=== PATIENT | male | born 1965 | race Caucasian/White ===

== ENCOUNTER 2021-07-18 09:23 | Observation (INO) | payer BC ==
[2021-07-18] MEDS ORDERED: Iopamidol-370 76% 500 ML 1 ML ONE (09:57)
[2021-07-18 10:37] LABS: #Lymphocytes 0.9 thou/uL (1.20-3.40); #Monocytes 0.2 thou/uL (0.11-0.59); #Neutrophils 2.8 thou/uL (1.40-6.50); %Eosinophils 0.4 % (0.0-10.0); %Lymphocytes 22.4 % (21.0-51.0); %Monocytes 4.1 % (0.0-10.0); %Neutrophils 73.1 % (42.0-75.0); Hemoglobin 13.2 g/dL (14.0-18.0); Mean Corpuscular HGB CONC 33.2 g/dL (32.0-36.0); Mean Corpuscular Hemoglobin 32.4 pg (27.0-31.0); Mean Corpuscular Volume 97.5 fL (78.0-98.0); RBC Distribution Width 12.3 % (11.5-14.5); Red Blood Cell (RBC) Count 4.07 mill/uL (4.70-6.10); White Blood Cell (WBC) Count 3.8 thou/uL (4.8-10.8)
[2021-07-18] MEDS ORDERED: Acetaminophen 500 MG TAB ONE (10:39)
[2021-07-18 10:50] LABS: Mean Platelet Volume 8.1 fL (7.4-10.4); Platelet Count 118 thou/uL (130-400)
[2021-07-18 10:58] LABS: ALT (SGPT) 28 U/L (8-55); AST (SGOT) 41 U/L (5-34); Albumin 3.7 g/dL (3.5-5.0); Alkaline Phosphatase 56 U/L (40-110); Anion Gap 14 mmol/L (10-20); BUN (Urea Nitrogen) 13 mg/dL (8.4-25.7); Bilirubin, Total 0.5 mg/dL (0.2-1.2); Calc. Creatinine Clearance 0 mL/min (70-130); Calcium 8.2 mg/dL (7.8-10.44); Carbon Dioxide 24 mmol/L (22-29); Chloride 103 mmol/L (98-107); Globulin 2.8 g/dL (2.4-3.5); Glucose 145 mg/dL (70-105); Potassium 4.2 mmol/L (3.5-5.1); Protein, Total 6.5 g/dL (6.0-8.3); Sodium 137 mmol/L (136-145)
[2021-07-18] MEDS ORDERED: Dexamethasone 10 MG/ML VIAL ONE (12:55)
[2021-07-18] MEDS ORDERED: Acetaminophen 325 MG TAB PO PRN (15:43)
[2021-07-18] MEDS ORDERED: Ondansetron PF 4 MG/2 ML Vial IVP PRN (15:43)
[2021-07-18 19:59] VITALS: BMI 37.4
[2021-07-19 00:22] LABS: SARS-CoV-2 NAA Rapid Test DETECTED (NotDetected)
[2021-07-19 05:44] LABS: #Lymphocytes 0.8 thou/uL (1.20-3.40); #Monocytes 0.4 thou/uL (0.11-0.59); #Neutrophils 4.7 thou/uL (1.40-6.50); %Eosinophils 0.1 % (0.0-10.0); %Lymphocytes 14.2 % (21.0-51.0); %Monocytes 6.4 % (0.0-10.0); %Neutrophils 79.4 % (42.0-75.0); Hemoglobin 13.5 g/dL (14.0-18.0); Mean Corpuscular HGB CONC 34.2 g/dL (32.0-36.0); Mean Corpuscular Hemoglobin 33.1 pg (27.0-31.0); Mean Corpuscular Volume 96.7 fL (78.0-98.0); Platelet Count 139 thou/uL (130-400); RBC Distribution Width 12.3 % (11.5-14.5); Red Blood Cell (RBC) Count 4.09 mill/uL (4.70-6.10); White Blood Cell (WBC) Count 5.9 thou/uL (4.8-10.8)
[2021-07-19 06:11] LABS: Anion Gap 12 mmol/L (10-20); BUN (Urea Nitrogen) 13 mg/dL (8.4-25.7); Calc. Creatinine Clearance 152 mL/min (70-130); Carbon Dioxide 28 mmol/L (22-29); Chloride 103 mmol/L (98-107); Glucose 147 mg/dL (70-105); Sodium 139 mmol/L (136-145)
[2021-07-19 07:55] VITALS: TEMP 100.5
[2021-07-19] MEDS ORDERED: Enoxaparin Sodium 40 MG/0.4 ML SYRINGE SC SCH (09:00)
[2021-07-19] MEDS ORDERED: Losartan 25 MG TAB PO SCH (09:00)
[2021-07-19 14:13] VITALS: BP 126/75
[2021-07-21] MEDS ORDERED: FLU VACC QS2021-22(6MOS UP)/PF 60 MCG/0.5 ML SYRINGE IM ONE (09:00)
== END 2021-07-19 16:25 | disposition home or self-care (01) ==
LOC: ERS 09:23 → ERHOLD 11:29 → 2SW 19:11
PROVIDERS: ADMIT Family Medicine; ATTEND Internal Medicine
DX: U07.1 COVID-19 (principal); J12.82 Pneumonia due to coronavirus disease 2019; R55 Syncope and collapse; I10 Essential (primary) hypertension; D61.818 Other pancytopenia; E66.01 Morbid (severe) obesity due to excess calories; Z68.37 Body mass index [BMI] 37.0-37.9, adult; Z79.899 Other long term (current) drug therapy; Z88.8 Allergy status to other drugs, medicaments and biological substances
CPT/HCPCS: 36415; 71045; 71275; 80048; 80053; 84484; 85025; 85379; 93005; 96372; 96374; G0378; J1100; J1650; U0002

== ENCOUNTER 2021-07-21 17:40 | Inpatient (IN) | payer BC ==
[~2021-07-21 17:40] MED LIST: Iopamidol-370 76% 500 ML 1 ML ONE
[2021-07-21 19:08] LABS: #Lymphocytes 0.6 thou/uL (1.20-3.40); #Monocytes 0.3 thou/uL (0.11-0.59); #Neutrophils 7.1 thou/uL (1.40-6.50); %Basophils 0.2 % (0.0-1.0); %Eosinophils 0.3 % (0.0-10.0); %Lymphocytes 7.4 % (21.0-51.0); %Monocytes 3.6 % (0.0-10.0); %Neutrophils 88.5 % (42.0-75.0); Hemoglobin 12.9 g/dL (14.0-18.0); Mean Corpuscular HGB CONC 33.6 g/dL (32.0-36.0); Mean Corpuscular Hemoglobin 32.7 pg (27.0-31.0); Mean Corpuscular Volume 97.3 fL (78.0-98.0); Mean Platelet Volume 7.6 fL (7.4-10.4); Platelet Count 165 thou/uL (130-400); RBC Distribution Width 12.5 % (11.5-14.5); Red Blood Cell (RBC) Count 3.93 mill/uL (4.70-6.10); White Blood Cell (WBC) Count 8.1 thou/uL (4.8-10.8)
[2021-07-21 19:30] LABS: ALT (SGPT) 36 U/L (8-55); AST (SGOT) 52 U/L (5-34); Albumin 3.6 g/dL (3.5-5.0); Alkaline Phosphatase 50 U/L (40-110); Anion Gap 14 mmol/L (10-20); BUN (Urea Nitrogen) 11 mg/dL (8.4-25.7); Bilirubin, Total 0.8 mg/dL (0.2-1.2); Calc. Creatinine Clearance 0 mL/min (70-130); Carbon Dioxide 25 mmol/L (22-29); Chloride 101 mmol/L (98-107); Globulin 2.7 g/dL (2.4-3.5); Glucose 165 mg/dL (70-105); Potassium 3.8 mmol/L (3.5-5.1); Protein, Total 6.3 g/dL (6.0-8.3); Sodium 136 mmol/L (136-145)
[2021-07-21 19:51] LABS: Actual Bicarbonate (HCO3a) 24.5 mEq/L (22-28); Analyzer IN Cardio ER; Base Excess (BEa) 0.4 mEq/L (-2.0 to +3.0); CO2 Tension 37.6 mmHg (35.0-45.0); Calcium, Ionized (arterial) 1.05 mmol/L (1.12-1.30); Carboxyhemoglobin (COHb) 1.3 gm% (0.0-3.0); Hemoglobin (Hb) 13.3 g/dL (14.0-18.0); Potassium - ABG Lab 3.64 mmol/L (3.70-5.30); pH, Arterial 7.43 (7.35-7.45)
[2021-07-21 19:52] LABS: O2 Tension (PaO2), arterial 51.3 mmHg (80.0-100.0); Puncture Site RRA
[2021-07-21] MEDS ORDERED: Enoxaparin Sodium 100 MG/ML SYRINGE ONE ×4 (20:53→21:01)
[2021-07-21] MEDS ORDERED: Enoxaparin Sodium 60 MG/0.6 ML SYRINGE ONE (20:53)
[2021-07-21] MEDS ORDERED: Acetaminophen 325 MG TAB PO PRN (21:01)
[2021-07-21] MEDS ORDERED: Ondansetron PF 4 MG/2 ML Vial IVP PRN (21:01)
[2021-07-21] MEDS ORDERED: Acetaminophen 500 MG TAB ONE ×2 (21:53→21:55)
[2021-07-22 03:47] LABS: #Basophils 0.1 thou/uL (0.0-0.2); #Lymphocytes 0.6 thou/uL (1.20-3.40); #Monocytes 0.4 thou/uL (0.11-0.59); #Neutrophils 6.3 thou/uL (1.40-6.50); %Basophils 1.5 % (0.0-1.0); %Eosinophils 0.1 % (0.0-10.0); %Lymphocytes 7.6 % (21.0-51.0); %Monocytes 5.2 % (0.0-10.0); %Neutrophils 85.6 % (42.0-75.0); Hemoglobin 13.3 g/dL (14.0-18.0); Mean Corpuscular HGB CONC 32.2 g/dL (32.0-36.0); Mean Corpuscular Hemoglobin 31.2 pg (27.0-31.0); Mean Corpuscular Volume 96.8 fL (78.0-98.0); Mean Platelet Volume 7.7 fL (7.4-10.4); Platelet Count 178 thou/uL (130-400); RBC Distribution Width 12.5 % (11.5-14.5); Red Blood Cell (RBC) Count 4.26 mill/uL (4.70-6.10); White Blood Cell (WBC) Count 7.3 thou/uL (4.8-10.8)
[2021-07-22 04:07] LABS: Anion Gap 13 mmol/L (10-20); BUN (Urea Nitrogen) 13 mg/dL (8.4-25.7); CRP (Inflammatory) 20.89 mg/dL (= or < 0.5); Calc. Creatinine Clearance 228 mL/min (70-130); Calcium 8.4 mg/dL (7.8-10.44); Carbon Dioxide 24 mmol/L (22-29); Chloride 102 mmol/L (98-107); Glucose 203 mg/dL (70-105); Potassium 3.9 mmol/L (3.5-5.1); Sodium 135 mmol/L (136-145)
[2021-07-22] MEDS ORDERED: Enoxaparin Sodium 80 MG/0.8 ML SYRINGE SC SCH (09:00)
[2021-07-22] MEDS ORDERED: Enoxaparin Sodium 100 MG/ML SYRINGE SC SCH (09:00)
[2021-07-22] MEDS: Losartan 25 MG TAB PO SCH (10:08)
[2021-07-22] MEDS: Famotidine/PF 20 mg/2ml Vial SLOW IVP SCH ×2 (10:08→10:10)
[2021-07-22] MEDS: Zinc Sulfate 220 MG CAP PO SCH (10:09)
[2021-07-22] MEDS: Aspirin 81 mg Enteric Coated Tablet PO SCH (10:09)
[2021-07-22] MEDS: Cholecalciferol 1,000 UNITS (25 MCG) TAB PO SCH (10:09)
[2021-07-22] MEDS: Dexamethasone 10 MG/ML VIAL SLOW IVP SCH ×2 (10:10→20:10)
[2021-07-22] MEDS ORDERED: REMDESIVIR 200 MG in Sodium Chloride 0.9% 250 ML 210 ML IV SCH (13:00)
[2021-07-22] MEDS: BARICITINIB 2 MG TAB PO SCH (13:57)
[2021-07-22] MEDS: Enoxaparin Sodium 60 MG/0.6 ML SYRINGE SC SCH (20:10)
[2021-07-23 03:57] LABS: Anion Gap 15 mmol/L (10-20); BUN (Urea Nitrogen) 22 mg/dL (8.4-25.7); CRP (Inflammatory) 10.67 mg/dL (= or < 0.5); Calc. Creatinine Clearance 198 mL/min (70-130); Calcium 8.8 mg/dL (7.8-10.44); Carbon Dioxide 25 mmol/L (22-29); Chloride 100 mmol/L (98-107); Glucose 188 mg/dL (70-105); Potassium 3.9 mmol/L (3.5-5.1); Sodium 136 mmol/L (136-145)
[2021-07-23 04:09] LABS: #Lymphocytes 1.2 thou/uL (1.20-3.40); #Monocytes 0.6 thou/uL (0.11-0.59); #Neutrophils 9.9 thou/uL (1.40-6.50); %Eosinophils 0.2 % (0.0-10.0); %Neutrophils 84.7 % (42.0-75.0); Hemoglobin 13.8 g/dL (14.0-18.0); Mean Corpuscular HGB CONC 32.6 g/dL (32.0-36.0); Mean Corpuscular Hemoglobin 32.4 pg (27.0-31.0); Mean Corpuscular Volume 99.3 fL (78.0-98.0); Mean Platelet Volume 7.9 fL (7.4-10.4); Platelet Count 251 thou/uL (130-400); RBC Distribution Width 12.6 % (11.5-14.5); Red Blood Cell (RBC) Count 4.26 mill/uL (4.70-6.10); White Blood Cell (WBC) Count 11.7 thou/uL (4.8-10.8)
[2021-07-23] MEDS ORDERED: Metoprolol Tartrate 5 MG/5 ML VIAL ONE (05:44)
[2021-07-23] MEDS: Metoprolol Tartrate 5 MG/5 ML VIAL IVP PRN ×2 (05:46→06:37)
[2021-07-23] MEDS: Dexamethasone 10 MG/ML VIAL SLOW IVP SCH ×2 (08:50→19:57)
[2021-07-23] MEDS: Aspirin 81 mg Enteric Coated Tablet PO SCH (08:50)
[2021-07-23] MEDS: Famotidine/PF 20 mg/2ml Vial SLOW IVP SCH ×2 (08:50→19:56)
[2021-07-23] MEDS: Cholecalciferol 1,000 UNITS (25 MCG) TAB PO SCH (08:50)
[2021-07-23] MEDS: Zinc Sulfate 220 MG CAP PO SCH (08:50)
[2021-07-23] MEDS: Enoxaparin Sodium 60 MG/0.6 ML SYRINGE SC SCH (08:51)
[2021-07-23 08:54] LABS: Actual Bicarbonate (HCO3a) 24.9 mEq/L (22-28); Base Excess (BEa) 1.8 mEq/L (-2.0 to +3.0); CO2 Tension 34.3 mmHg (35.0-45.0); Calcium, Ionized (arterial) 1.09 mmol/L (1.12-1.30); Carboxyhemoglobin (COHb) 0.9 gm% (0.0-3.0); Hemoglobin (Hb) 13.6 g/dL (14.0-18.0); O2 Tension (PaO2), arterial 77.9 mmHg (80.0-100.0); Potassium - ABG Lab 3.91 mmol/L (3.70-5.30); pH, Arterial 7.48 (7.35-7.45)
[2021-07-23 08:57] LABS: ALV-art Gradient 449.625 mmHg (0-20); Puncture Site RRA
[2021-07-23] MEDS: Losartan 25 MG TAB PO SCH (09:02)
[2021-07-23] MEDS: REMDESIVIR 100 MG in Sodium Chloride 0.9% 250 ML 230 ML IV SCH (09:15)
[2021-07-23] MEDS: Amiodarone 450 MG, Admixture Fee 1 EACH in Dextrose 5% in Water 250 ML IVPB SCH ×2 (09:24→16:26)
[2021-07-23] MEDS: BARICITINIB 2 MG TAB PO SCH (14:46)
[2021-07-23] MEDS: Pantoprazole 40 MG VIAL IVP SCH (19:56)
[2021-07-23] MEDS: Enoxaparin Sodium 80 MG/0.8 ML SYRINGE SC SCH (19:58)
[2021-07-24 03:59] LABS: Anion Gap 15 mmol/L (10-20); BUN (Urea Nitrogen) 27 mg/dL (8.4-25.7); CRP (Inflammatory) 4.74 mg/dL (= or < 0.5); Calc. Creatinine Clearance 205 mL/min (70-130); Calcium 8.5 mg/dL (7.8-10.44); Carbon Dioxide 25 mmol/L (22-29); Chloride 100 mmol/L (98-107); Glucose 222 mg/dL (70-105); Potassium 3.8 mmol/L (3.5-5.1); Sodium 136 mmol/L (136-145)
[2021-07-24 06:23] LABS: Hemoglobin 13.2 g/dL (14.0-18.0); Mean Corpuscular HGB CONC 33.6 g/dL (32.0-36.0); Mean Corpuscular Hemoglobin 32.4 pg (27.0-31.0); Mean Corpuscular Volume 96.6 fL (78.0-98.0); Mean Platelet Volume 7.6 fL (7.4-10.4); Platelet Count 303 thou/uL (130-400); RBC Distribution Width 12.3 % (11.5-14.5); Red Blood Cell (RBC) Count 4.07 mill/uL (4.70-6.10); White Blood Cell (WBC) Count 12.9 thou/uL (4.8-10.8)
[2021-07-24 06:35] LABS: #Lymphocytes 1.2 thou/uL (1.20-3.40); #Monocytes 0.9 thou/uL (0.11-0.59); #Neutrophils 10.8 thou/uL (1.40-6.50); %Eosinophils 0.2 % (0.0-10.0); %Lymphocytes 9.6 % (21.0-51.0); %Monocytes 6.7 % (0.0-10.0); %Neutrophils 83.5 % (42.0-75.0); RBC Morphology Normal
[2021-07-24] MEDS: Cholecalciferol 1,000 UNITS (25 MCG) TAB PO SCH (09:00)
[2021-07-24] MEDS: Aspirin 81 mg Enteric Coated Tablet PO SCH (09:00)
[2021-07-24] MEDS: Famotidine/PF 20 mg/2ml Vial SLOW IVP SCH (09:00)
[2021-07-24] MEDS: Pantoprazole 40 MG VIAL IVP SCH ×2 (09:00→20:18)
[2021-07-24] MEDS: Losartan 25 MG TAB PO SCH (09:00)
[2021-07-24] MEDS: Enoxaparin Sodium 80 MG/0.8 ML SYRINGE SC SCH ×2 (09:00→20:18)
[2021-07-24] MEDS: Zinc Sulfate 220 MG CAP PO SCH (09:00)
[2021-07-24] MEDS: REMDESIVIR 100 MG in Sodium Chloride 0.9% 250 ML 230 ML IV SCH (09:01)
[2021-07-24] MEDS: Dexamethasone 10 MG/ML VIAL SLOW IVP SCH ×2 (09:01→20:18)
[2021-07-24] MEDS ORDERED: Amiodarone 200 MG TAB PO SCH ×2 (11:00→13:00)
[2021-07-24] MEDS: BARICITINIB 2 MG TAB PO SCH (15:03)
[2021-07-24] MEDS ORDERED: Electrolyte Replacement Protocol 1 EACH FS SCH (17:15)
[2021-07-24] MEDS: Amiodarone 200 MG TAB PO SCH (20:18)
[2021-07-25 03:45] LABS: CRP (Inflammatory) 2.85 mg/dL (= or < 0.5); Phosphorus 2.9 mg/dL (2.3-4.7)
[2021-07-25 03:48] LABS: ALT (SGPT) 45 U/L (8-55); AST (SGOT) 33 U/L (5-34); Albumin 3.7 g/dL (3.5-5.0); Alkaline Phosphatase 52 U/L (40-110); Anion Gap 14 mmol/L (10-20); BUN (Urea Nitrogen) 24 mg/dL (8.4-25.7); Bilirubin, Direct 0.4 mg/dL (0.1-0.3); Bilirubin, Total 0.9 mg/dL (0.2-1.2); Calc. Creatinine Clearance 188 mL/min (70-130); Calcium 8.6 mg/dL (7.8-10.44); Carbon Dioxide 27 mmol/L (22-29); Chloride 99 mmol/L (98-107); Globulin 3.2 g/dL (2.4-3.5); Glucose 201 mg/dL (70-105); Magnesium 2.4 mg/dL (1.6-2.6); Potassium 3.8 mmol/L (3.5-5.1); Protein, Total 6.9 g/dL (6.0-8.3); Sodium 136 mmol/L (136-145)
[2021-07-25 03:51] LABS: Band 9 % (5-11); Hemoglobin 13.6 g/dL (14.0-18.0); Lymphocytes 6 % (21-51); MDiff Complete? YES; Mean Corpuscular HGB CONC 33.8 g/dL (32.0-36.0); Mean Corpuscular Hemoglobin 32.4 pg (27.0-31.0); Mean Corpuscular Volume 95.8 fL (78.0-98.0); Mean Platelet Volume 7.3 fL (7.4-10.4); Monocytes 20 % (0-10); Neutrophil 65 % (42-75); Platelet Count 329 thou/uL (130-400); Platelet Morphology Comment Appears Adequate; RBC Distribution Width 12.3 % (11.5-14.5); RBC Morphology Normal; White Blood Cell (WBC) Count 15.3 thou/uL (4.8-10.8)
[2021-07-25] MEDS: Zinc Sulfate 220 MG CAP PO SCH (09:24)
[2021-07-25] MEDS: Losartan 25 MG TAB PO SCH (09:24)
[2021-07-25] MEDS: Amiodarone 200 MG TAB PO SCH ×2 (09:25→20:19)
[2021-07-25] MEDS: Aspirin 81 mg Enteric Coated Tablet PO SCH (09:25)
[2021-07-25] MEDS: Dexamethasone 10 MG/ML VIAL SLOW IVP SCH ×2 (09:25→20:19)
[2021-07-25] MEDS: Pantoprazole 40 MG VIAL IVP SCH ×2 (09:25→20:19)
[2021-07-25] MEDS: REMDESIVIR 100 MG in Sodium Chloride 0.9% 250 ML 230 ML IV SCH (09:25)
[2021-07-25] MEDS: Enoxaparin Sodium 80 MG/0.8 ML SYRINGE SC SCH ×2 (09:25→20:19)
[2021-07-25] MEDS: Cholecalciferol 1,000 UNITS (25 MCG) TAB PO SCH (09:25)
[2021-07-25] MEDS: BARICITINIB 2 MG TAB PO SCH (13:30)
[2021-07-26 03:45] LABS: Hemoglobin A1c 6.5 % (4.0-6.0)
[2021-07-26 03:55] LABS: Hemoglobin 13.8 g/dL (14.0-18.0); Hypochromia SLIGHT = 6-15 cells (100X) (0-5/hpf); Lymphocytes 7 % (21-51); MDiff Complete? YES; Mean Corpuscular HGB CONC 33.9 g/dL (32.0-36.0); Mean Corpuscular Hemoglobin 33.5 pg (27.0-31.0); Mean Corpuscular Volume 98.9 fL (78.0-98.0); Monocytes 9 % (0-10); Neutrophil 84 % (42-75); Platelet Count 287 thou/uL (130-400); Platelet Morphology Comment Appears Adequate; RBC Distribution Width 12.4 % (11.5-14.5); Red Blood Cell (RBC) Count 4.11 mill/uL (4.70-6.10); White Blood Cell (WBC) Count 17.6 thou/uL (4.8-10.8)
[2021-07-26 07:14] LABS: Albumin 3.4 g/dL (3.5-5.0)
[2021-07-26 07:15] LABS: Chloride 99 mmol/L (98-107); Potassium 3.5 mmol/L (3.5-5.1); Sodium 135 mmol/L (136-145)
[2021-07-26 07:16] LABS: Calcium 8.4 mg/dL (7.8-10.44); Glucose 182 mg/dL (70-105)
[2021-07-26 07:17] LABS: Globulin 2.8 g/dL (2.4-3.5); Protein, Total 6.2 g/dL (6.0-8.3)
[2021-07-26 07:18] LABS: Anion Gap 13 mmol/L (10-20); Bilirubin, Total 0.8 mg/dL (0.2-1.2); Carbon Dioxide 27 mmol/L (22-29)
[2021-07-26 07:19] LABS: Alkaline Phosphatase 46 U/L (40-110); CRP (Inflammatory) 1.75 mg/dL (= or < 0.5)
[2021-07-26 07:20] LABS: Calc. Creatinine Clearance 185 mL/min (70-130)
[2021-07-26 07:21] LABS: BUN (Urea Nitrogen) 20 mg/dL (8.4-25.7)
[2021-07-26 07:22] LABS: ALT (SGPT) 44 U/L (8-55); AST (SGOT) 26 U/L (5-34)
[2021-07-26] MEDS ORDERED: Dextrose 5% in Water 1,000 ML IV PRN (08:23)
[2021-07-26] MEDS ORDERED: Dextrose 50% Abboject 50 ML SYRINGE SLOW IVP PRN (08:23)
[2021-07-26] MEDS: REMDESIVIR 100 MG in Sodium Chloride 0.9% 250 ML 230 ML IV SCH (10:09)
[2021-07-26] MEDS: Cholecalciferol 1,000 UNITS (25 MCG) TAB PO SCH (10:10)
[2021-07-26] MEDS: Dexamethasone 10 MG/ML VIAL SLOW IVP SCH ×2 (10:10→21:55)
[2021-07-26] MEDS: Losartan 25 MG TAB PO SCH (10:10)
[2021-07-26] MEDS: Amiodarone 200 MG TAB PO SCH ×2 (10:11→21:55)
[2021-07-26] MEDS: Enoxaparin Sodium 80 MG/0.8 ML SYRINGE SC SCH ×2 (10:11→21:56)
[2021-07-26] MEDS: Zinc Sulfate 220 MG CAP PO SCH (10:11)
[2021-07-26] MEDS: Aspirin 81 mg Enteric Coated Tablet PO SCH (10:11)
[2021-07-26] MEDS ORDERED: Potassium Chloride 20 MEQ TAB PO SCH (12:00)
[2021-07-26] MEDS: BARICITINIB 2 MG TAB PO SCH (12:01)
[2021-07-26] MEDS: Insulin Regular 300 UNITS/3 ML VIAL SC PRN ×2 (16:16→22:00)
[2021-07-27] MEDS ORDERED: Potassium Chloride 20 MEQ TAB PO SCH (09:00)
[2021-07-27] MEDS: Enoxaparin Sodium 80 MG/0.8 ML SYRINGE SC SCH ×2 (09:57→20:16)
[2021-07-27] MEDS: Aspirin 81 mg Enteric Coated Tablet PO SCH (09:57)
[2021-07-27] MEDS: Amiodarone 200 MG TAB PO SCH ×2 (09:58→20:16)
[2021-07-27] MEDS: Zinc Sulfate 220 MG CAP PO SCH (09:58)
[2021-07-27] MEDS: Cholecalciferol 1,000 UNITS (25 MCG) TAB PO SCH (09:58)
[2021-07-27] MEDS: Dexamethasone 10 MG/ML VIAL SLOW IVP SCH ×2 (09:58→20:16)
[2021-07-27] MEDS: Losartan 25 MG TAB PO SCH (09:58)
[2021-07-27] MEDS: Furosemide 20 MG/2 ML VIAL SLOW IVP SCH (10:04)
[2021-07-27] MEDS: BARICITINIB 2 MG TAB PO SCH (13:31)
[2021-07-27] MEDS ORDERED: VANCOMYCIN 2 GRAM/400 ML BAG 2 GM in Premix Bag 1 BAG IVPB SCH (15:45)
[2021-07-27] MEDS: Cefepime 2 GM in Sodium Chloride 0.9% 100 ML IVPB SCH (16:51)
[2021-07-27] MEDS: Insulin Regular 300 UNITS/3 ML VIAL SC PRN (16:55)
[2021-07-27] MEDS: VANCOMYCIN 2 GRAM/400 ML BAG 2 GM in Premix Bag 1 BAG IVPB SCH (17:21)
[2021-07-27] MEDS: Mometasone 200 MCG/Formoterol 5 MCG 120 PUFF INHALER INH SCH (22:27)
[2021-07-28] MEDS: Cefepime 2 GM in Sodium Chloride 0.9% 100 ML IVPB SCH ×2 (04:06→15:36)
[2021-07-28] MEDS: VANCOMYCIN 2 GRAM/400 ML BAG 2 GM in Premix Bag 1 BAG IVPB SCH ×2 (04:06→15:36)
[2021-07-28 04:25] LABS: ALT (SGPT) 34 U/L (8-55); AST (SGOT) 27 U/L (5-34); Albumin 3.1 g/dL (3.5-5.0); Alkaline Phosphatase 46 U/L (40-110); Anion Gap 13 mmol/L (10-20); BUN (Urea Nitrogen) 17 mg/dL (8.4-25.7); Bilirubin, Direct 0.3 mg/dL (0.1-0.3); Bilirubin, Total 0.6 mg/dL (0.2-1.2); CRP (Inflammatory) 13.16 mg/dL (= or < 0.5); Calc. Creatinine Clearance 225 mL/min (70-130); Calcium 8.3 mg/dL (7.8-10.44); Carbon Dioxide 21 mmol/L (22-29); Chloride 105 mmol/L (98-107); Globulin 3.3 g/dL (2.4-3.5); Glucose 167 mg/dL (70-105); Magnesium 2.4 mg/dL (1.6-2.6); Phosphorus 3.6 mg/dL (2.3-4.7); Protein, Total 6.4 g/dL (6.0-8.3); Sodium 134 mmol/L (136-145)
[2021-07-28 04:34] LABS: Band 3 % (5-11); Hemoglobin 13.4 g/dL (14.0-18.0); Lymphocytes 3 % (21-51); MDiff Complete? YES; Mean Corpuscular HGB CONC 33.7 g/dL (32.0-36.0); Mean Corpuscular Hemoglobin 32.6 pg (27.0-31.0); Mean Corpuscular Volume 96.8 fL (78.0-98.0); Mean Platelet Volume 7.3 fL (7.4-10.4); Monocytes 1 % (0-10); Myelocyte 2 % (0-0); Neutrophil 91 % (42-75); Platelet Count 343 thou/uL (130-400); Platelet Morphology Comment Appears Adequate; RBC Distribution Width 12.4 % (11.5-14.5); RBC Morphology Normal; Red Blood Cell (RBC) Count 4.09 mill/uL (4.70-6.10); White Blood Cell (WBC) Count 17.4 thou/uL (4.8-10.8)
[2021-07-28] MEDS: Mometasone 200 MCG/Formoterol 5 MCG 120 PUFF INHALER INH SCH (07:39)
[2021-07-28] MEDS: Aspirin 81 mg Enteric Coated Tablet PO SCH (07:49)
[2021-07-28] MEDS: Losartan 25 MG TAB PO SCH (07:49)
[2021-07-28] MEDS: Amiodarone 200 MG TAB PO SCH (07:49)
[2021-07-28] MEDS: Cholecalciferol 1,000 UNITS (25 MCG) TAB PO SCH (07:49)
[2021-07-28] MEDS: Dexamethasone 10 MG/ML VIAL SLOW IVP SCH ×2 (07:50→20:55)
[2021-07-28] MEDS: Enoxaparin Sodium 80 MG/0.8 ML SYRINGE SC SCH ×2 (07:50→20:55)
[2021-07-28] MEDS: Furosemide 20 MG/2 ML VIAL SLOW IVP SCH (07:50)
[2021-07-28] MEDS: Zinc Sulfate 220 MG CAP PO SCH (07:50)
[2021-07-28] MEDS ORDERED: Furosemide 20 MG/2 ML VIAL SLOW IVP SCH (08:58)
[2021-07-28] MEDS ORDERED: Furosemide 40 MG/4 ML VIAL SLOW IVP SCH (09:15)
[2021-07-28] MEDS: BARICITINIB 2 MG TAB PO SCH (15:37)
[2021-07-28] MEDS ORDERED: Cholecalciferol 1,000 UNITS (25 MCG) TAB PO SCH (21:00)
[2021-07-28] MEDS: Insulin Regular 300 UNITS/3 ML VIAL SC PRN (21:24)
[2021-07-29 03:23] LABS: #Lymphocytes 0.5 thou/uL (1.20-3.40); #Monocytes 0.4 thou/uL (0.11-0.59); #Neutrophils 13.7 thou/uL (1.40-6.50); %Eosinophils 0.2 % (0.0-10.0); %Lymphocytes 3.4 % (21.0-51.0); %Monocytes 2.7 % (0.0-10.0); %Neutrophils 93.7 % (42.0-75.0); Hemoglobin 12.8 g/dL (14.0-18.0); Mean Corpuscular Hemoglobin 32.7 pg (27.0-31.0); Mean Corpuscular Volume 96.2 fL (78.0-98.0); Mean Platelet Volume 7.2 fL (7.4-10.4); Platelet Count 378 thou/uL (130-400); RBC Distribution Width 12.4 % (11.5-14.5); Red Blood Cell (RBC) Count 3.93 mill/uL (4.70-6.10); White Blood Cell (WBC) Count 14.6 thou/uL (4.8-10.8)
[2021-07-29 03:45] LABS: ALT (SGPT) 28 U/L (8-55); AST (SGOT) 16 U/L (5-34); Albumin 3.1 g/dL (3.5-5.0); Alkaline Phosphatase 49 U/L (40-110); Anion Gap 10 mmol/L (10-20); BUN (Urea Nitrogen) 20 mg/dL (8.4-25.7); Bilirubin, Total 0.6 mg/dL (0.2-1.2); CRP (Inflammatory) 7.44 mg/dL (= or < 0.5); Calc. Creatinine Clearance 225 mL/min (70-130); Calcium 8.3 mg/dL (7.8-10.44); Carbon Dioxide 25 mmol/L (22-29); Chloride 101 mmol/L (98-107); Glucose 197 mg/dL (70-105); Magnesium 2.4 mg/dL (1.6-2.6); Potassium 4.3 mmol/L (3.5-5.1); Protein, Total 6.1 g/dL (6.0-8.3); Sodium 132 mmol/L (136-145)
[2021-07-29] MEDS: VANCOMYCIN 2 GRAM/400 ML BAG 2 GM in Premix Bag 1 BAG IVPB SCH ×2 (03:57→14:29)
[2021-07-29] MEDS: Cefepime 2 GM in Sodium Chloride 0.9% 100 ML IVPB SCH ×2 (03:59→14:29)
[2021-07-29] MEDS: Insulin Regular 300 UNITS/3 ML VIAL SC PRN ×2 (05:49→21:15)
[2021-07-29] MEDS: Mometasone 200 MCG/Formoterol 5 MCG 120 PUFF INHALER INH SCH ×2 (07:11→07:13)
[2021-07-29] MEDS: Zinc Sulfate 220 MG CAP PO SCH (08:24)
[2021-07-29] MEDS: Dexamethasone 10 MG/ML VIAL SLOW IVP SCH ×2 (08:24→20:29)
[2021-07-29] MEDS: Enoxaparin Sodium 80 MG/0.8 ML SYRINGE SC SCH ×2 (08:24→20:29)
[2021-07-29] MEDS: Aspirin 81 mg Enteric Coated Tablet PO SCH (08:24)
[2021-07-29] MEDS: Losartan 25 MG TAB PO SCH (08:24)
[2021-07-29] MEDS: Dronedarone HCl 400 MG TAB PO SCH ×2 (08:24→17:12)
[2021-07-29] MEDS: Cholecalciferol 1,000 UNITS (25 MCG) TAB PO SCH (08:24)
[2021-07-29] MEDS: BARICITINIB 2 MG TAB PO SCH (14:28)
[2021-07-30] MEDS: VANCOMYCIN 2 GRAM/400 ML BAG 2 GM in Premix Bag 1 BAG IVPB SCH ×2 (03:37→16:59)
[2021-07-30 04:17] LABS: #Lymphocytes 0.5 thou/uL (1.20-3.40); #Monocytes 0.6 thou/uL (0.11-0.59); #Neutrophils 14.5 thou/uL (1.40-6.50); %Eosinophils 0.1 % (0.0-10.0); %Monocytes 3.7 % (0.0-10.0); %Neutrophils 93.2 % (42.0-75.0); Hemoglobin 13.4 g/dL (14.0-18.0); Mean Corpuscular HGB CONC 33.5 g/dL (32.0-36.0); Mean Corpuscular Hemoglobin 32.8 pg (27.0-31.0); Mean Corpuscular Volume 97.9 fL (78.0-98.0); Mean Platelet Volume 7.3 fL (7.4-10.4); Platelet Count 394 thou/uL (130-400); RBC Distribution Width 12.5 % (11.5-14.5); Red Blood Cell (RBC) Count 4.07 mill/uL (4.70-6.10); White Blood Cell (WBC) Count 15.6 thou/uL (4.8-10.8)
[2021-07-30 04:48] LABS: ALT (SGPT) 28 U/L (8-55); AST (SGOT) 16 U/L (5-34); Albumin 3.2 g/dL (3.5-5.0); Alkaline Phosphatase 47 U/L (40-110); Anion Gap 13 mmol/L (10-20); BUN (Urea Nitrogen) 18 mg/dL (8.4-25.7); Bilirubin, Total 0.6 mg/dL (0.2-1.2); Calc. Creatinine Clearance 249 mL/min (70-130); Calcium 8.9 mg/dL (7.8-10.44); Carbon Dioxide 23 mmol/L (22-29); Chloride 101 mmol/L (98-107); Globulin 3.3 g/dL (2.4-3.5); Glucose 160 mg/dL (70-105); Potassium 4.8 mmol/L (3.5-5.1); Protein, Total 6.5 g/dL (6.0-8.3); Sodium 132 mmol/L (136-145)
[2021-07-30] MEDS: Cefepime 2 GM in Sodium Chloride 0.9% 100 ML IVPB SCH ×2 (06:15→18:30)
[2021-07-30] MEDS: Mometasone 200 MCG/Formoterol 5 MCG 120 PUFF INHALER INH SCH ×3 (06:23→21:57)
[2021-07-30] MEDS: Cholecalciferol 1,000 UNITS (25 MCG) TAB PO SCH (07:50)
[2021-07-30] MEDS: Dronedarone HCl 400 MG TAB PO SCH ×2 (07:50→16:59)
[2021-07-30] MEDS: Losartan 25 MG TAB PO SCH (07:50)
[2021-07-30] MEDS: Zinc Sulfate 220 MG CAP PO SCH (07:50)
[2021-07-30] MEDS: Dexamethasone 10 MG/ML VIAL SLOW IVP SCH ×2 (07:50→20:00)
[2021-07-30] MEDS: Aspirin 81 mg Enteric Coated Tablet PO SCH (07:50)
[2021-07-30] MEDS: Enoxaparin Sodium 80 MG/0.8 ML SYRINGE SC SCH ×2 (07:50→20:00)
[2021-07-30] MEDS: BARICITINIB 2 MG TAB PO SCH (11:26)
[2021-07-30] MEDS: Folic Acid 1 MG TAB PO SCH (20:01)
[2021-07-30] MEDS: Cyanocobalamin (Vitamin B-12) 1,000 MCG TAB PO SCH (20:01)
[2021-07-31 04:14] LABS: #Lymphocytes 0.5 thou/uL (1.20-3.40); #Monocytes 0.7 thou/uL (0.11-0.59); #Neutrophils 13.4 thou/uL (1.40-6.50); %Eosinophils 0.1 % (0.0-10.0); %Lymphocytes 3.3 % (21.0-51.0); %Monocytes 4.4 % (0.0-10.0); %Neutrophils 92.2 % (42.0-75.0); Mean Corpuscular HGB CONC 33.8 g/dL (32.0-36.0); Mean Corpuscular Hemoglobin 32.7 pg (27.0-31.0); Mean Corpuscular Volume 96.8 fL (78.0-98.0); Mean Platelet Volume 7.5 fL (7.4-10.4); Platelet Count 379 thou/uL (130-400); RBC Distribution Width 12.4 % (11.5-14.5); Red Blood Cell (RBC) Count 3.97 mill/uL (4.70-6.10); White Blood Cell (WBC) Count 14.6 thou/uL (4.8-10.8)
[2021-07-31 04:34] LABS: Vancomycin, Trough 14.6 ug/mL
[2021-07-31 04:38] LABS: ALT (SGPT) 24 U/L (8-55); AST (SGOT) 17 U/L (5-34); Albumin 3.1 g/dL (3.5-5.0); Alkaline Phosphatase 46 U/L (40-110); Anion Gap 14 mmol/L (10-20); BUN (Urea Nitrogen) 19 mg/dL (8.4-25.7); Bilirubin, Direct 0.3 mg/dL (0.1-0.3); Bilirubin, Total 0.6 mg/dL (0.2-1.2); Calc. Creatinine Clearance 236 mL/min (70-130); Calcium 8.7 mg/dL (7.8-10.44); Carbon Dioxide 20 mmol/L (22-29); Chloride 102 mmol/L (98-107); Globulin 3.1 g/dL (2.4-3.5); Glucose 154 mg/dL (70-105); Potassium 4.7 mmol/L (3.5-5.1); Protein, Total 6.2 g/dL (6.0-8.3); Sodium 131 mmol/L (136-145)
[2021-07-31] MEDS: VANCOMYCIN 2 GRAM/400 ML BAG 2 GM in Premix Bag 1 BAG IVPB SCH ×2 (04:48→16:21)
[2021-07-31] MEDS: Cefepime 2 GM in Sodium Chloride 0.9% 100 ML IVPB SCH ×2 (05:50→16:19)
[2021-07-31] MEDS: Mometasone 200 MCG/Formoterol 5 MCG 120 PUFF INHALER INH SCH ×2 (05:56→19:22)
[2021-07-31] MEDS ORDERED: Furosemide 40 MG TAB PO SCH (07:30)
[2021-07-31] MEDS: Dronedarone HCl 400 MG TAB PO SCH ×2 (09:35→16:20)
[2021-07-31] MEDS: Cholecalciferol 1,000 UNITS (25 MCG) TAB PO SCH (09:35)
[2021-07-31] MEDS: Zinc Sulfate 220 MG CAP PO SCH (09:35)
[2021-07-31] MEDS: Aspirin 81 mg Enteric Coated Tablet PO SCH (09:35)
[2021-07-31] MEDS: Losartan 25 MG TAB PO SCH (09:35)
[2021-07-31] MEDS: Dexamethasone 10 MG/ML VIAL SLOW IVP SCH ×2 (09:36→21:01)
[2021-07-31] MEDS: Enoxaparin Sodium 80 MG/0.8 ML SYRINGE SC SCH ×2 (09:36→21:01)
[2021-07-31] MEDS: BARICITINIB 2 MG TAB PO SCH (12:26)
[2021-07-31] MEDS: Insulin Regular 300 UNITS/3 ML VIAL SC PRN (16:43)
[2021-07-31] MEDS: Folic Acid 1 MG TAB PO SCH (21:01)
[2021-07-31] MEDS: Cyanocobalamin (Vitamin B-12) 1,000 MCG TAB PO SCH (21:01)
[2021-08-01] MEDS: Cefepime 2 GM in Sodium Chloride 0.9% 100 ML IVPB SCH ×2 (03:59→17:47)
[2021-08-01 04:02] LABS: #Lymphocytes 0.4 thou/uL (1.20-3.40); #Monocytes 0.6 thou/uL (0.11-0.59); #Neutrophils 13.9 thou/uL (1.40-6.50); %Eosinophils 0.1 % (0.0-10.0); %Lymphocytes 2.9 % (21.0-51.0); %Monocytes 4.1 % (0.0-10.0); Hemoglobin 13.3 g/dL (14.0-18.0); Mean Corpuscular HGB CONC 33.5 g/dL (32.0-36.0); Mean Corpuscular Volume 98.7 fL (78.0-98.0); Mean Platelet Volume 7.2 fL (7.4-10.4); Platelet Count 343 thou/uL (130-400); RBC Distribution Width 12.5 % (11.5-14.5); Red Blood Cell (RBC) Count 4.01 mill/uL (4.70-6.10); White Blood Cell (WBC) Count 14.9 thou/uL (4.8-10.8)
[2021-08-01] MEDS: VANCOMYCIN 2 GRAM/400 ML BAG 2 GM in Premix Bag 1 BAG IVPB SCH (04:07)
[2021-08-01 04:22] LABS: Anion Gap 13 mmol/L (10-20); BUN (Urea Nitrogen) 20 mg/dL (8.4-25.7); CRP (Inflammatory) 2.84 mg/dL (= or < 0.5); Calc. Creatinine Clearance 228 mL/min (70-130); Calcium 8.6 mg/dL (7.8-10.44); Carbon Dioxide 21 mmol/L (22-29); Chloride 103 mmol/L (98-107); Glucose 158 mg/dL (70-105); Magnesium 2.3 mg/dL (1.6-2.6); Potassium 4.5 mmol/L (3.5-5.1); Sodium 132 mmol/L (136-145)
[2021-08-01] MEDS: Mometasone 200 MCG/Formoterol 5 MCG 120 PUFF INHALER INH SCH ×2 (08:24→19:14)
[2021-08-01 09:10] VITALS: BMI 51.2
[2021-08-01] MEDS: Dronedarone HCl 400 MG TAB PO SCH ×2 (10:12→17:47)
[2021-08-01] MEDS: Dexamethasone 10 MG/ML VIAL SLOW IVP SCH ×2 (10:13→20:29)
[2021-08-01] MEDS: Enoxaparin Sodium 80 MG/0.8 ML SYRINGE SC SCH ×2 (10:13→20:29)
[2021-08-01] MEDS: Zinc Sulfate 220 MG CAP PO SCH (10:13)
[2021-08-01] MEDS: Cholecalciferol 1,000 UNITS (25 MCG) TAB PO SCH (10:13)
[2021-08-01] MEDS: Losartan 25 MG TAB PO SCH (10:13)
[2021-08-01] MEDS: Aspirin 81 mg Enteric Coated Tablet PO SCH (10:13)
[2021-08-01] MEDS: BARICITINIB 2 MG TAB PO SCH (13:26)
[2021-08-01] MEDS: Cyanocobalamin (Vitamin B-12) 1,000 MCG TAB PO SCH (20:28)
[2021-08-01] MEDS: Folic Acid 1 MG TAB PO SCH (20:29)
[2021-08-02] MEDS: Cefepime 2 GM in Sodium Chloride 0.9% 100 ML IVPB SCH ×2 (04:06→17:20)
[2021-08-02 04:18] LABS: #Lymphocytes 0.5 thou/uL (1.20-3.40); #Monocytes 0.7 thou/uL (0.11-0.59); #Neutrophils 13.6 thou/uL (1.40-6.50); %Eosinophils 0.3 % (0.0-10.0); %Lymphocytes 3.5 % (21.0-51.0); %Monocytes 4.8 % (0.0-10.0); %Neutrophils 91.4 % (42.0-75.0); Mean Corpuscular HGB CONC 33.6 g/dL (32.0-36.0); Mean Corpuscular Hemoglobin 32.8 pg (27.0-31.0); Mean Corpuscular Volume 97.6 fL (78.0-98.0); Mean Platelet Volume 7.4 fL (7.4-10.4); Platelet Count 364 thou/uL (130-400); RBC Distribution Width 12.5 % (11.5-14.5); Red Blood Cell (RBC) Count 3.96 mill/uL (4.70-6.10); White Blood Cell (WBC) Count 14.9 thou/uL (4.8-10.8)
[2021-08-02 04:36] LABS: Anion Gap 13 mmol/L (10-20); BUN (Urea Nitrogen) 20 mg/dL (8.4-25.7); Calc. Creatinine Clearance 243 mL/min (70-130); Calcium 8.5 mg/dL (7.8-10.44); Carbon Dioxide 23 mmol/L (22-29); Chloride 103 mmol/L (98-107); Glucose 160 mg/dL (70-105); Potassium 4.7 mmol/L (3.5-5.1); Sodium 134 mmol/L (136-145)
[2021-08-02] MEDS: Mometasone 200 MCG/Formoterol 5 MCG 120 PUFF INHALER INH SCH ×2 (08:00→19:21)
[2021-08-02] MEDS: Dronedarone HCl 400 MG TAB PO SCH ×2 (09:12→17:20)
[2021-08-02] MEDS: Zinc Sulfate 220 MG CAP PO SCH (09:12)
[2021-08-02] MEDS: Cholecalciferol 1,000 UNITS (25 MCG) TAB PO SCH (09:12)
[2021-08-02] MEDS: Losartan 25 MG TAB PO SCH (09:12)
[2021-08-02] MEDS: Enoxaparin Sodium 80 MG/0.8 ML SYRINGE SC SCH ×2 (09:12→21:05)
[2021-08-02] MEDS: Dexamethasone 10 MG/ML VIAL SLOW IVP SCH ×2 (09:12→21:05)
[2021-08-02] MEDS: Aspirin 81 mg Enteric Coated Tablet PO SCH (09:12)
[2021-08-02] MEDS: BARICITINIB 2 MG TAB PO SCH (12:36)
[2021-08-02] MEDS: Insulin Regular 300 UNITS/3 ML VIAL SC PRN (17:58)
[2021-08-02] MEDS ORDERED: Furosemide 100 MG/10 ML VIAL FS SCH (18:00)
[2021-08-02] MEDS: Cyanocobalamin (Vitamin B-12) 1,000 MCG TAB PO SCH (21:05)
[2021-08-02] MEDS: Folic Acid 1 MG TAB PO SCH (21:05)
[2021-08-03] MEDS: Cefepime 2 GM in Sodium Chloride 0.9% 100 ML IVPB SCH ×2 (03:57→16:09)
[2021-08-03] MEDS ORDERED: metFORMIN XR 500 MG TAB ONE (08:12)
[2021-08-03] MEDS: Cholecalciferol 1,000 UNITS (25 MCG) TAB PO SCH (08:16)
[2021-08-03] MEDS: Zinc Sulfate 220 MG CAP PO SCH (08:16)
[2021-08-03] MEDS: Losartan 25 MG TAB PO SCH (08:16)
[2021-08-03] MEDS: Aspirin 81 mg Enteric Coated Tablet PO SCH (08:16)
[2021-08-03] MEDS: Dexamethasone 10 MG/ML VIAL SLOW IVP SCH ×2 (08:16→22:02)
[2021-08-03] MEDS: Enoxaparin Sodium 80 MG/0.8 ML SYRINGE SC SCH ×2 (08:16→22:02)
[2021-08-03] MEDS: Dronedarone HCl 400 MG TAB PO SCH ×2 (08:17→17:21)
[2021-08-03] MEDS: Mometasone 200 MCG/Formoterol 5 MCG 120 PUFF INHALER INH SCH ×2 (08:53→19:36)
[2021-08-03 12:50] LABS: ALT (SGPT) 29 U/L (8-55); AST (SGOT) 21 U/L (5-34); Albumin 3.1 g/dL (3.5-5.0); Alkaline Phosphatase 51 U/L (40-110); Bilirubin, Direct 0.2 mg/dL (0.1-0.3); Bilirubin, Total 0.5 mg/dL (0.2-1.2); Protein, Total 6.5 g/dL (6.0-8.3)
[2021-08-03] MEDS: BARICITINIB 2 MG TAB PO SCH (16:09)
[2021-08-03] MEDS: Admixture Fee 1 EACH in Sodium Chloride 3% 100 ML IV SCH ×2 (16:09→18:51)
[2021-08-03] MEDS ORDERED: Furosemide 40 MG/4 ML VIAL SLOW IVP SCH (17:00)
[2021-08-03] MEDS: Cyanocobalamin (Vitamin B-12) 1,000 MCG TAB PO SCH (22:02)
[2021-08-03] MEDS: Folic Acid 1 MG TAB PO SCH (22:02)
[2021-08-04 00:03] LABS: Actual Bicarbonate (HCO3a) 26.1 mEq/L (22-28); Base Excess (BEa) 1.1 mEq/L (-2.0 to +3.0); Calcium, Ionized (arterial) 1.12 mmol/L (1.12-1.30); Carboxyhemoglobin (COHb) 1.4 gm% (0.0-3.0); Hemoglobin (Hb) 13.8 g/dL (14.0-18.0); Potassium - ABG Lab 4.32 mmol/L (3.70-5.30)
[2021-08-04 00:05] LABS: O2 Tension (PaO2), arterial 40.5 mmHg (80.0-100.0)
[2021-08-04 00:06] LABS: Puncture Site RRA
[2021-08-04] MEDS: Cefepime 2 GM in Sodium Chloride 0.9% 100 ML IVPB SCH ×2 (05:53→17:36)
[2021-08-04] MEDS: Insulin Regular 300 UNITS/3 ML VIAL SC PRN ×2 (06:33→15:30)
[2021-08-04] MEDS: Mometasone 200 MCG/Formoterol 5 MCG 120 PUFF INHALER INH SCH ×2 (07:31→19:07)
[2021-08-04] MEDS ORDERED: Ventilator Sedation Protocol 1 EACH FS ONE (08:07)
[2021-08-04] MEDS ORDERED: Morphine 2 MG/ML VIAL SLOW IVP PRN (08:15)
[2021-08-04] MEDS ORDERED: Propofol BOLUS 1,000 MG/100 ML VIAL IV PRN (08:15)
[2021-08-04] MEDS ORDERED: Fentanyl CADD 100 ML IV SCH (08:15)
[2021-08-04] MEDS ORDERED: Fentanyl BOLUS 250 ML IVPB PRN (08:15)
[2021-08-04] MEDS: Zinc Sulfate 220 MG CAP PO SCH (08:57)
[2021-08-04] MEDS: Losartan 25 MG TAB PO SCH (08:57)
[2021-08-04] MEDS: Enoxaparin Sodium 80 MG/0.8 ML SYRINGE SC SCH ×2 (08:57→21:23)
[2021-08-04] MEDS: Cholecalciferol 1,000 UNITS (25 MCG) TAB PO SCH (08:57)
[2021-08-04] MEDS: Aspirin 81 mg Enteric Coated Tablet PO SCH (08:57)
[2021-08-04] MEDS: Dronedarone HCl 400 MG TAB PO SCH ×2 (08:57→17:35)
[2021-08-04] MEDS: Dexamethasone 10 MG/ML VIAL SLOW IVP SCH ×2 (08:58→21:38)
[2021-08-04] MEDS ORDERED: Diltiazem 125 MG in Sodium Chloride 0.9% 100 ML IVPB SCH (09:15)
[2021-08-04] MEDS ORDERED: Furosemide 40 MG/4 ML VIAL SLOW IVP SCH (09:30)
[2021-08-04] MEDS: Morphine 4 MG/ML VIAL SLOW IVP PRN ×2 (11:42→17:32)
[2021-08-04] MEDS: Lorazepam 2 MG/ML VIAL SLOW IVP PRN ×2 (11:42→17:32)
[2021-08-04 11:51] LABS: Base Excess (BEa) -1.5 mEq/L (-2.0 to +3.0); CO2 Tension 55.6 mmHg (35.0-45.0); Calcium, Ionized (arterial) 1.14 mmol/L (1.12-1.30); Carboxyhemoglobin (COHb) 1.3 gm% (0.0-3.0); Hemoglobin (Hb) 13.3 g/dL (14.0-18.0); Potassium - ABG Lab 4.07 mmol/L (3.70-5.30); pH, Arterial 7.29 (7.35-7.45)
[2021-08-04 11:57] LABS: O2 Tension (PaO2), arterial 54.3 mmHg (80.0-100.0); Puncture Site RRA
[2021-08-04] MEDS ORDERED: Rocuronium Bromide 10 MG/ML (10ML VIAL) ONE ×2 (11:58→12:14)
[2021-08-04] MEDS: fentaNYL Citrate-0.9 % NaCl/PF 100 ML IVPB SCH (12:16)
[2021-08-04] MEDS ORDERED: Rocuronium Bromide 10 MG/ML (10ML VIAL) IVP PRN (12:19)
[2021-08-04] MEDS: Propofol 1,000 MG/100 ML VIAL IV PRN ×2 (14:25→23:21)
[2021-08-04] MEDS: BARICITINIB 2 MG TAB PO SCH (14:25)
[2021-08-04] MEDS: Vecuronium 10 MG VIAL IVP PRN ×2 (17:31→23:44)
[2021-08-04] MEDS: Folic Acid 1 MG TAB PO SCH (21:24)
[2021-08-04] MEDS: Cyanocobalamin (Vitamin B-12) 1,000 MCG TAB PO SCH (22:05)
[2021-08-05] MEDS: Cefepime 2 GM in Sodium Chloride 0.9% 100 ML IVPB SCH ×2 (03:21→16:28)
[2021-08-05 04:32] LABS: Hemoglobin 10.4 g/dL (14.0-18.0); Mean Corpuscular Hemoglobin 32.3 pg (27.0-31.0); Mean Platelet Volume 8.2 fL (7.4-10.4); Platelet Count 325 thou/uL (130-400); RBC Distribution Width 12.6 % (11.5-14.5); Red Blood Cell (RBC) Count 3.22 mill/uL (4.70-6.10); White Blood Cell (WBC) Count 22.6 thou/uL (4.8-10.8)
[2021-08-05] MEDS: Vecuronium 10 MG VIAL IVP PRN ×3 (04:39→23:09)
[2021-08-05 04:42] LABS: Anion Gap 9 mmol/L (10-20); BUN (Urea Nitrogen) 54 mg/dL (8.4-25.7); Calc. Creatinine Clearance 82 mL/min (70-130); Carbon Dioxide 22 mmol/L (22-29); Chloride 110 mmol/L (98-107); Glucose 173 mg/dL (70-105); Potassium 4.6 mmol/L (3.5-5.1); Sodium 136 mmol/L (136-145)
[2021-08-05 05:00] LABS: Band 4 % (5-11); Lymphocytes 4 % (21-51); MDiff Complete? YES; Metamyelocyte 1 % (0-0); Monocytes 1 % (0-10); Neutrophil 90 % (42-75)
[2021-08-05 07:19] LABS: Actual Bicarbonate (HCO3a) 25.4 mEq/L (22-28); Base Excess (BEa) -4.1 mEq/L (-2.0 to +3.0); Hemoglobin (Hb) 11.8 g/dL (14.0-18.0); O2 Tension (PaO2), arterial 78.7 mmHg (80.0-100.0); Potassium - ABG Lab 5.01 mmol/L (3.70-5.30)
[2021-08-05] MEDS: Mometasone 200 MCG/Formoterol 5 MCG 120 PUFF INHALER INH SCH ×2 (07:26→18:17)
[2021-08-05 07:27] LABS: Puncture Site RRA; pH, Arterial 7.17 (7.35-7.45)
[2021-08-05] MEDS: Enoxaparin Sodium 80 MG/0.8 ML SYRINGE SC SCH ×2 (08:55→21:19)
[2021-08-05] MEDS: Dexamethasone 10 MG/ML VIAL SLOW IVP SCH ×2 (08:55→21:20)
[2021-08-05] MEDS: Lorazepam 2 MG/ML VIAL SLOW IVP PRN ×2 (08:55→22:12)
[2021-08-05] MEDS: Aspirin 81 mg Enteric Coated Tablet PO SCH (08:56)
[2021-08-05] MEDS: Cholecalciferol 1,000 UNITS (25 MCG) TAB PO SCH (08:56)
[2021-08-05] MEDS: Zinc Sulfate 220 MG CAP PO SCH (08:56)
[2021-08-05] MEDS: Dronedarone HCl 400 MG TAB PO SCH ×2 (08:56→16:28)
[2021-08-05] MEDS: Sodium Chloride 0.45% 1,000 ML IV SCH ×2 (11:31→21:20)
[2021-08-05] MEDS: Insulin Regular 300 UNITS/3 ML VIAL SC PRN ×3 (11:36→21:26)
[2021-08-05] MEDS: fentaNYL Citrate-0.9 % NaCl/PF 100 ML IVPB SCH (16:28)
[2021-08-05] MEDS: Cyanocobalamin (Vitamin B-12) 1,000 MCG TAB PO SCH (21:20)
[2021-08-05] MEDS: Folic Acid 1 MG TAB PO SCH (21:20)
[2021-08-05] MEDS ORDERED: Norepinephrine 8 MG/0.9% NS 250 ML ONE (23:30)
[2021-08-05] MEDS ORDERED: Amiodarone 150 MG, Admixture Fee 1 EACH in Dextrose 5% in Water 100 ML IVPB SCH (23:45)
[2021-08-05] MEDS ORDERED: Sodium Chloride 0.9% 500 ML IVPB SCH (23:45)
[2021-08-06] MEDS: Norepinephrine 8 MG/0.9% NS 250 ML IVPB SCH ×4 (00:06→21:31)
[2021-08-06] MEDS: Amiodarone 450 MG, Admixture Fee 1 EACH in Dextrose 5% in Water 250 ML IVPB SCH ×3 (00:27→23:58)
[2021-08-06] MEDS: Propofol 1,000 MG/100 ML VIAL IV PRN ×3 (02:33→15:51)
[2021-08-06] MEDS: Vecuronium 10 MG VIAL IVP PRN ×3 (02:33→21:42)
[2021-08-06] MEDS: Sodium Chloride 0.45% 1,000 ML IV SCH (03:49)
[2021-08-06] MEDS: Cefepime 2 GM in Sodium Chloride 0.9% 100 ML IVPB SCH (03:52)
[2021-08-06 05:36] LABS: Anion Gap 19 mmol/L (10-20); BUN (Urea Nitrogen) 95 mg/dL (8.4-25.7); Calc. Creatinine Clearance 36 mL/min (70-130); Calcium 7.2 mg/dL (7.8-10.44); Carbon Dioxide 21 mmol/L (22-29); Chloride 100 mmol/L (98-107); Glucose 215 mg/dL (70-105); Potassium 5.6 mmol/L (3.5-5.1); Sodium 134 mmol/L (136-145)
[2021-08-06 06:50] LABS: Band 13 % (5-11); Hemoglobin 9.9 g/dL (14.0-18.0); Lymphocytes 2 % (21-51); MDiff Complete? YES; Mean Corpuscular HGB CONC 31.7 g/dL (32.0-36.0); Mean Corpuscular Hemoglobin 32.3 pg (27.0-31.0); Mean Platelet Volume 8.3 fL (7.4-10.4); Monocytes 4 % (0-10); Neutrophil 81 % (42-75); Platelet Count 360 thou/uL (130-400); RBC Distribution Width 12.7 % (11.5-14.5); Red Blood Cell (RBC) Count 3.07 mill/uL (4.70-6.10); White Blood Cell (WBC) Count 28.9 thou/uL (4.8-10.8)
[2021-08-06] MEDS: Mometasone 200 MCG/Formoterol 5 MCG 120 PUFF INHALER INH SCH ×2 (07:43→18:41)
[2021-08-06 07:45] LABS: Actual Bicarbonate (HCO3a) 20.7 mEq/L (22-28); Base Excess (BEa) -8.7 mEq/L (-2.0 to +3.0); Calcium, Ionized (arterial) 0.98 mmol/L (1.12-1.30); Carboxyhemoglobin (COHb) 1.1 gm% (0.0-3.0); Hemoglobin (Hb) 10.7 g/dL (14.0-18.0); O2 Tension (PaO2), arterial 92.8 mmHg (80.0-100.0)
[2021-08-06 08:03] LABS: CO2 Tension 62.9 mmHg (35.0-45.0); Puncture Site RRA; pH, Arterial 7.14 (7.35-7.45)
[2021-08-06 08:04] LABS: ALV-art Gradient 327.675 mmHg (0-20)
[2021-08-06] MEDS: Dexamethasone 10 MG/ML VIAL SLOW IVP SCH ×2 (09:27→21:38)
[2021-08-06] MEDS: Enoxaparin Sodium 80 MG/0.8 ML SYRINGE SC SCH ×2 (09:27→21:38)
[2021-08-06] MEDS: Dronedarone HCl 400 MG TAB PO SCH ×2 (09:27→16:34)
[2021-08-06] MEDS: Cholecalciferol 1,000 UNITS (25 MCG) TAB PO SCH (09:27)
[2021-08-06] MEDS: Aspirin 81 mg Enteric Coated Tablet PO SCH (09:29)
[2021-08-06] MEDS: Zinc Sulfate 220 MG CAP PO SCH (09:29)
[2021-08-06] MEDS: Insulin Regular 300 UNITS/3 ML VIAL SC PRN ×2 (10:24→16:34)
[2021-08-06] MEDS ORDERED: Vasopressin 20 UNIT, Admixture Fee 1 EACH in Sodium Chloride 0.9% 50 ML IV SCH (11:30)
[2021-08-06] MEDS ORDERED: Micafungin 100 MG in Sodium Chloride 0.9% 100 ML IVPB SCH (12:00)
[2021-08-06] MEDS ORDERED: Meropenem 500 MG in Sodium Chloride 0.9% 100 ML IVPB SCH ×2 (13:00→22:00)
[2021-08-06] MEDS ORDERED: Meropenem 2 GM in Admixture Fee 1 EACH IVPB SCH (14:00)
[2021-08-06] MEDS ORDERED: Dextrose 50% Abboject 50 ML SYRINGE SLOW IVP PRN ×2 (16:28→20:07)
[2021-08-06] MEDS ORDERED: Calcium Gluconate 4.6 MEQ in Sodium Chloride 0.9% 100 ML IVPB SCH (16:29)
[2021-08-06] MEDS ORDERED: Insulin Regular 300 UNITS/3 ML VIAL IVP SCH ×2 (16:30→21:00)
[2021-08-06 17:15] LABS: Magnesium 2.7 mg/dL (1.6-2.6)
[2021-08-06 17:19] LABS: Phosphorus 9.5 mg/dL (2.3-4.7)
[2021-08-06] MEDS: fentaNYL Citrate-0.9 % NaCl/PF 100 ML IVPB SCH (18:33)
[2021-08-06 19:25] LABS: Albumin 2.8 g/dL (3.5-5.0); Anion Gap 22 mmol/L (10-20); BUN (Urea Nitrogen) 114 mg/dL (8.4-25.7); BUN/Creatinine Ratio 18.24; Calc. Creatinine Clearance 30 mL/min (70-130); Calcium 7.5 mg/dL (7.8-10.44); Carbon Dioxide 17 mmol/L (22-29); Chloride 99 mmol/L (98-107); Glucose 202 mg/dL (70-105); Potassium 5.9 mmol/L (3.5-5.1); Sodium 132 mmol/L (136-145)
[2021-08-06 19:36] LABS: Phosphorus 9.7 mg/dL (2.3-4.7)
[2021-08-06 20:18] LABS: Creatinine, Urine 100.41 mg/dL (63-166)
[2021-08-06] MEDS ORDERED: Linezolid 600 MG in Premix Bag 1 BAG IVPB SCH (21:00)
[2021-08-06] MEDS ORDERED: Sodium Bicarbonate 150 MEQ in Sterile Water Injection 1,000 ML IV SCH (21:00)
[2021-08-06 21:09] LABS: Bilirubin Negative (Negative); Blood, Urine 2+ (Negative); Clarity Extra Turbid (Clear); Glucose, Urine (Dipstick) Normal (Negative); Ketone, Urine Negative (Negative); Leukocyte 500 Leu/uL (Negative); Nitrite Negative (Negative); Protein, Urine (Dipstick) 70 mg/dL (Neg-Trace); Specific Gravity, Urine 1.022 (1.002-1.036); Urobilinogen Normal mg/dL (Less than 2)
[2021-08-06] MEDS: Cyanocobalamin (Vitamin B-12) 1,000 MCG TAB PO SCH (21:38)
[2021-08-06] MEDS: Folic Acid 1 MG TAB PO SCH (21:38)
[2021-08-06 21:40] LABS: Bacteria/HPF 2+ HPF (None Seen)
[2021-08-06 21:41] LABS: Urine Culture Reflex No No
[2021-08-06] MEDS ORDERED: Sterile Water 10 ML ONE (21:41)
[2021-08-07 00:17] LABS: Anion Gap 21 mmol/L (10-20); BUN (Urea Nitrogen) 117 mg/dL (8.4-25.7); Calc. Creatinine Clearance 29 mL/min (70-130); Calcium 7.1 mg/dL (7.8-10.44); Carbon Dioxide 16 mmol/L (22-29); Chloride 99 mmol/L (98-107); Glucose 248 mg/dL (70-105); Sodium 130 mmol/L (136-145)
[2021-08-07 02:24] VITALS: BP 110/66
[2021-08-07] MEDS: Insulin Regular 300 UNITS/3 ML VIAL SC PRN (03:43)
[2021-08-07 04:56] LABS: Anion Gap 20 mmol/L (10-20); BUN (Urea Nitrogen) 120 mg/dL (8.4-25.7); Calc. Creatinine Clearance 27 mL/min (70-130); Calcium 7.3 mg/dL (7.8-10.44); Carbon Dioxide 19 mmol/L (22-29); Chloride 97 mmol/L (98-107); Glucose 251 mg/dL (70-105); Magnesium 2.8 mg/dL (1.6-2.6); Potassium 6.1 mmol/L (3.5-5.1); Sodium 130 mmol/L (136-145)
[2021-08-07 05:02] LABS: Hemoglobin 9.7 g/dL (14.0-18.0); Hypochromia SLIGHT = 6-15 cells (100X) (0-5/hpf); Lymphocytes 4 % (21-51); MDiff Complete? YES; Macrocytosis SLIGHT = 6-15 cells (100X) (0-5/hpf); Mean Corpuscular HGB CONC 31.9 g/dL (32.0-36.0); Mean Corpuscular Hemoglobin 32.2 pg (27.0-31.0); Mean Platelet Volume 8.4 fL (7.4-10.4); Monocytes 21 % (0-10); Neutrophil 75 % (42-75); Platelet Count 326 thou/uL (130-400); Platelet Morphology Comment Appears Adequate; RBC Distribution Width 12.7 % (11.5-14.5); Red Blood Cell (RBC) Count 3.03 mill/uL (4.70-6.10); White Blood Cell (WBC) Count 28.7 thou/uL (4.8-10.8)
[2021-08-07 05:05] LABS: Phosphorus 9.6 mg/dL (2.3-4.7)
[2021-08-07] MEDS: Propofol 1,000 MG/100 ML VIAL IV PRN (06:50)
[2021-08-07 07:22] LABS: Actual Bicarbonate (HCO3a) 19.1 mEq/L (22-28); Base Excess (BEa) -11.4 mEq/L (-2.0 to +3.0); Calcium, Ionized (arterial) 0.97 mmol/L (1.12-1.30); Carboxyhemoglobin (COHb) 1.4 gm% (0.0-3.0); Hemoglobin (Hb) 11.1 g/dL (14.0-18.0); O2 Tension (PaO2), arterial 64.5 mmHg (80.0-100.0); Potassium - ABG Lab 5.97 mmol/L (3.70-5.30)
[2021-08-07] MEDS ORDERED: Sodium Bicarb 50 MEQ/50 ML Abboject 8.4% SYRINGE ONE (07:33)
[2021-08-07 08:00] LABS: ALV-art Gradient 386.125 mmHg (0-20); CO2 Tension 67.3 mmHg (35.0-45.0); Puncture Site RRA; pH, Arterial 7.07 (7.35-7.45)
[2021-08-07] MEDS ORDERED: Sevelamer Carbonate 800 MG TAB PO SCH (08:00)
[2021-08-07] MEDS: Mometasone 200 MCG/Formoterol 5 MCG 120 PUFF INHALER INH SCH (08:01)
[2021-08-07] MEDS ORDERED: Sodium Bicarb 50 MEQ/50 ML Abboject 8.4% SYRINGE IVP SCH (08:15)
[2021-08-07 08:29] VITALS: TEMP 98.2
[2021-08-07] MEDS ORDERED: Aspirin Chewable 81 MG TAB PO SCH (09:00)
[2021-08-07] MEDS ORDERED: Pantoprazole 40 MG VIAL IVP SCH (09:00)
[2021-08-07] MEDS: Norepinephrine 8 MG/0.9% NS 250 ML IVPB SCH (10:10)
== END 2021-08-07 11:42 | disposition hospice, inpatient (51) | DRG 871 ==
LOC: ERS 17:40 → IMCU/EMU 21:01 → ERHOLD 07-27 11:08 → IMCU/EMU 07-27 11:22 → ERHOLD 07-27 11:31 → IMCU/EMU 07-27 11:32 → CCU 08-04 10:08
PROVIDERS: ADMIT Internal Medicine; ATTEND Family Medicine
PROC: 8E0ZXY6 Isolation (ICD-10-PCS; principal; 2021-07-21)
PROC: 5A09557 Assistance with Respiratory Ventilation, Greater than 96 Consecutive Hours, Continuous Positive Airway Pressure (ICD-10-PCS; 2021-07-21)
PROC: XW0DXM6 Introduction of Baricitinib into Mouth and Pharynx, External Approach, New Technology Group 6 (ICD-10-PCS; 2021-07-22)
PROC: XW033E5 Introduction of Remdesivir Anti-infective into Peripheral Vein, Percutaneous Approach, New Technology Group 5 (ICD-10-PCS; 2021-07-22)
PROC: 5A1945Z Respiratory Ventilation, 24-96 Consecutive Hours (ICD-10-PCS; 2021-08-04)
PROC: 0BH18EZ Insertion of Endotracheal Airway into Trachea, Via Natural or Artificial Opening Endoscopic (ICD-10-PCS; 2021-08-04)
PROC: 3E033XZ Introduction of Vasopressor into Peripheral Vein, Percutaneous Approach (ICD-10-PCS; 2021-08-05)
DX: A41.89 Other specified sepsis (principal); U07.1 COVID-19; J12.82 Pneumonia due to coronavirus disease 2019; J96.01 Acute respiratory failure with hypoxia; R65.21 Severe sepsis with septic shock; N17.0 Acute kidney failure with tubular necrosis; E87.1 Hypo-osmolality and hyponatremia; E87.2 Acidosis; Z68.43 Body mass index [BMI] 50.0-59.9, adult; D61.818 Other pancytopenia; Z51.5 Encounter for palliative care; Z66 Do not resuscitate; E66.01 Morbid (severe) obesity due to excess calories; R74.01 Elevation of levels of liver transaminase levels; I12.9 Hypertensive chronic kidney disease with stage 1 through stage 4 chronic kidney disease, or unspecified chronic kidney disease; E11.22 Type 2 diabetes mellitus with diabetic chronic kidney disease; N18.2 Chronic kidney disease, stage 2 (mild); D63.1 Anemia in chronic kidney disease; E11.65 Type 2 diabetes mellitus with hyperglycemia; I48.0 Paroxysmal atrial fibrillation; J98.2 Interstitial emphysema; E87.5 Hyperkalemia; E83.39 Other disorders of phosphorus metabolism; Y95 Nosocomial condition; Z79.82 Long term (current) use of aspirin; Z83.3 Family history of diabetes mellitus; Z80.9 Family history of malignant neoplasm, unspecified; Z88.8 Allergy status to other drugs, medicaments and biological substances; Z79.899 Other long term (current) drug therapy; Z78.1 Physical restraint status; F17.290 Nicotine dependence, other tobacco product, uncomplicated; R55 Syncope and collapse
CPT/HCPCS: 36415; 36416; 36600; 71045; 71275; 80048; 80053; 80076; 80202; 81001; 82570; 82805; 83036; 83735; 83880; 84100; 84156; 84300; 84484; 84540; 85025; 85379; 86140; 87040; 93005; 93010; 94002; 94003; 94660; 96372; 96374; A4217; C9113; G0378; J0248; J0282; J0610; J0692; J1100; J1650; J1815; J1940; J2020; J2060; J2185; J2248; J2270; J2704; J3370; J3490; J7030; J7050; J7070; J7131; Q9967; S0028; U0002

== ENCOUNTER 2021-08-07 12:20 | Inpatient (IN) | payer OTHER ==
[2021-08-07] MEDS ORDERED: Lorazepam 2 MG/ML VIAL SLOW IVP PRN ×3 (12:48→13:00)
[2021-08-07] MEDS ORDERED: Morphine 4 MG/ML VIAL SLOW IVP PRN (12:49)
[2021-08-07] MEDS ORDERED: Atropine Sulfate 1% Ophth Soln 5 ml Bottle PO PRN (12:50)
[2021-08-07] MEDS ORDERED: Morphine 10 MG/0.5 ML ORAL SYRINGE SL PRN (13:00)
[2021-08-07] MEDS ORDERED: ALPRAZolam 0.25 MG TAB SL PRN (13:00)
[2021-08-07] MEDS ORDERED: chlorproMAZINE HCl 25 MG in Sodium Chloride 0.9% 50 ML IVPB PRN (13:00)
[2021-08-07] MEDS ORDERED: chlorproMAZINE HCl 50 MG/2 ML AMP IM PRN ×2 (13:00)
[2021-08-07] MEDS ORDERED: Hyoscyamine Sulfate SL 0.125 mg Tablet SL PRN (13:00)
[2021-08-07] MEDS ORDERED: Acetaminophen 650 MG Suppository PR PRN (13:00)
[2021-08-07] MEDS ORDERED: Scopolamine 1.5 mg/72 hour Patch TOP PRN ×2 (13:00)
[2021-08-07] MEDS ORDERED: Lorazepam 1 MG TAB PO PRN (13:00)
[2021-08-07] MEDS ORDERED: Ondansetron PF 4 MG/2 ML Vial IVP PRN (13:00)
[2021-08-07] MEDS ORDERED: diphenhydrAMINE 50 MG/ML VIAL IVP PRN (13:00)
[2021-08-07] MEDS ORDERED: Haloperidol Lactate 5 MG/ML VIAL SLOW IVP PRN (13:00)
[2021-08-07] MEDS ORDERED: Promethazine HCl 25 MG SUPP PR PRN (13:00)
[2021-08-07] MEDS ORDERED: Lorazepam 1 MG TAB SL PRN (13:00)
== END 2021-08-07 16:01 | disposition expired | DRG 951 ==
LOC: CCU 12:20
PROVIDERS: ADMIT Family Medicine; ATTEND Family Medicine
DX: Z51.5 Encounter for palliative care (principal)
CPT/HCPCS: J2060; J2270